=== PATIENT | female | born 1955 | race Caucasian/White ===

== ENCOUNTER 2017-06-27 08:53 | Day surgery (SDC) | payer OTHER ==
[~2017-06-27] VITALS: Ht 149.9 cm; Wt 49.8 kg
[2017-06-27 10:15] VITALS: Ht 149.9 cm; Wt 49.8 kg
[2017-06-27] MEDS ORDERED: ALDENDRONATE PO (10:41)
[2017-06-27] MEDS ORDERED: ibuprofen PO (10:42)
--- NOTE | 2017-06-27 10:50 | OPPN ---
Date/Time of Note Date/Time of Note DATE: 06/27/17 TIME: 10:48 Operative Report Preoperative Diagnosis Screening Postoperative Diagnosis Internal hemorrhoids No colon neoplasm is identified Operation/Procedure Performed Colonoscopy Provider: DAVE LEES MD Anesthesia Type: moderate sedation Estimated blood loss: none Transfusion Required: no Specimen: none Grafts/Implants: none Complications: no DAVE LEES MD Jun 27, 2017 10:50
[2017-06-27] MEDS ORDERED: FENTAnyl 50 MCG/ML VIAL ONE (11:02)
[2017-06-27] MEDS ORDERED: MIDAZOLAM 1 MG/ML 2 ML INJ ONE (11:02)
[2017-06-27 11:15] VITALS: BP 99/57; RESP 12
--- NOTE | 2017-06-27 11:18 | GILP ---
DATE OF PROCEDURE: 06/27/2017 PREOPERATIVE DIAGNOSIS: Screening colonoscopy. POSTOPERATIVE DIAGNOSES: 1. Colonoscopy all the way to the cecum. 2. Internal hemorrhoids. 3. No colon neoplasm was identified. PROCEDURE PERFORMED: Colonoscopy. SURGEON: Markie Lozano MD INDICATION: Ms Anuja Thompson is a 61-year-old female patient who was scheduled for screening colonoscopy. The procedure and possible complications were well explained to the patient. She understood and consented to the procedure. DESCRIPTION OF PROCEDURE: Under influence of fentanyl and Versed, the colonoscope was carefully introduced the rectum. Under direct vision, it was advanced all the way to the cecum. Findings: The patient had internal hemorrhoids. No colon neoplasm was identified. She tolerated the procedure very well. There was no complication from the procedure. At the end of procedure, she was awake with stable vital signs and she was discharged home in the care of her family. IMPRESSION: Please see postop diagnoses. PLAN: Next screening colonoscopy in 10 years. Dictated By: MD CINDI Goode/aubree/walter /Document#: [id number]
== END 2017-06-27 15:21 | disposition home or self-care (01) ==
LOC: GIL 08:53
PROVIDERS: ATTEND Internal Medicine Gastroenterology
DX: Z12.11 Encounter for screening for malignant neoplasm of colon (principal); K64.8 Other hemorrhoids
CPT/HCPCS: 45378; J2250; J3010